=== PATIENT | female | born 2000 | race Caucasian/White ===

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

== ENCOUNTER 2019-06-20 21:05 | Emergency (ER) | payer BC ==
[2019-06-20] MEDS ORDERED: Acetaminophen 325 MG Tab PO ONE (21:14)
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
--- NOTE | 2019-06-20 21:50 | CR ---
Left fifth finger: 3 views centered to the left fifth finger were obtained. Comparison: No prior fifth finger study. Joint spaces are preserved. No fracture, dislocation or other bony abnormality is seen. Impression: 1. No abnormality is appreciated on 3 view left fifth finger exam. Diagnostic code #1 Study was dictated in MDT
--- NOTE | 2019-06-20 21:50 | CR ---
Lumbar spine: AP, lateral and coned-down lateral view centered to the lumbosacral junction were obtained. Comparison: No prior lumbar spine imaging is available. Vertebral body heights and disc spaces are preserved. Pedicles are intact. Visualized transverse and spinous processes are intact. No subluxation or fracture is seen. Slight increased stool is seen throughout the colon. Impression: 1. Slight increased stool within the colon. 2. Nothing acute is appreciated on 3 view lumbar spine exam. Diagnostic code #2 Study was dictated in MDT
[2019-06-20] MEDS ORDERED: Acetaminophen/HYDROcodone 325-5 MG Tab PO ONE (21:57)
[2019-06-20] MEDS ORDERED: Lidocaine 5% 700 MG Patch TOP ONE (21:57)
[2019-06-20 23:25] VITALS: BP 142/83; PULSE 122
== END 2019-06-20 22:43 | disposition home or self-care (01) ==
LOC: MW.ED 21:05
DX: S63.617A Unspecified sprain of left little finger, initial encounter (principal); S70.11XA Contusion of right thigh, initial encounter; S30.0XXA Contusion of lower back and pelvis, initial encounter; V86.59XA Driver of other special all-terrain or other off-road motor vehicle injured in nontraffic accident, initial encounter
CPT/HCPCS: 29130; 72100; 72100-26; 73140-26-F4; 73140-F4; 99282; 99284-25; A9270-GY

== ENCOUNTER 2020-02-05 21:58 | Emergency (ER) | payer BC ==
[2020-02-05] MEDS ORDERED: Sodium Chloride 0.9% 10 ML Syringe FLUSH PRN (22:03)
[2020-02-05] MEDS ORDERED: Sodium Chloride 0.9% 2.5 ML Syringe FLUSH PRN (22:03)
--- NOTE | 2020-02-05 22:19 | EDM.PDOCBH ---
ED HPI GENERAL MEDICAL PROBLEM - General Chief Complaint: Behavioral/Psych Stated Complaint: TOOK TO MUCH PILLS Time Seen by Provider: 02/05/20 21:59 Source of Information: Reports: Patient, Old Records History Limitations: Reports: No Limitations - History of Present Illness INITIAL COMMENTS - FREE TEXT/NARRATIVE: Is a very pleasant 19-year-old female presenting with concern for possible overdose. Patient is prescribed clonazepam 0.5 mg which she is supposed to take 3 times daily as needed for anxiety. Patient states she was involved in an argument with her boyfriend and her boyfriend's parents. She took 4 of her clonazepam tablets in front of her family "to get attention". She states that she was not trying to kill herself. She denies using any alcohol, illegal leonard gs, or any other medications tonight. At present she has no complaints and denies any pain. With the patient's consent, I did speak with her mother. Mother added no additional meaningful information and is not aware of any alcohol or illegal drug usage, states the patient did not make any direct suicidal statements to her. ROS: A 10-point review of systems was negative, except as noted in the HPI (or in the ROS section of this note). Past medical history: Reviewed, no additional pertinent history. Surgical history: Reviewed in system, no additional pertinent history. Social history: Reviewed in system, no additional pertinent history. Family history: Reviewed in system, no additional pertinent history. PHYSICAL EXAM Vital signs reviewed. Nursing notes reviewed. Constitutional: Awake, alert, non-distressed. Head: Normocephalic, atraumatic. Eyes: Pupils 3 mm bilaterally, EOMI, conjunctiva normal, no discharge, no scleral icterus. Ears, Nose, Throat: External ears and nose normal, moist oral mucosa. Cardiovascular: 2+ radial pulses bilaterally, capillary refill less than 2 seconds. Pulmonary: normal work of breathing, no accessory muscle use. Abdomen/GI: Soft, nontender, nondistended, no guarding or rigidity, no masses. Musculoskeletal: No deformities. Integumentary: Appropriate color for ethnicity, warm, dry, no pallor or jaundice, no rash. Neurologic: Alert, answering questions appropriately, normal speech, no facial droop, moving all extremities well. Psychiatric: Withdrawn, normal thought process. This patient was seen and evaluated during the 2019 SARS-CoV-2 novel coronavirus pandemic period. Community viral transmission is ongoing at time of this encounter and the emergency department is operating under pandemic response procedures. - Related Data Allergies Allergy/AdvReac Type Severity Reaction Status Date / Time No Known Allergies Allergy Verified 02/05/20 22:28 Home Meds: Home Meds ClonazePAM [KlonoPIN] 0.5 mg PO TID 02/05/20 [History] Past Medical History - Past Health History Medical/Surgical History: Denies Medical/Surgical History - Infectious Disease History Infectious Disease History: Reports: Chicken Pox Social & Family History - Family History Family Medical History: No Pertinent Family History - Caffeine Use Caffeine Use: Reports: None ED ROS GENERAL - Review of Systems Review Of Systems: See Below ED EXAM, BEHAVIORAL HEALTH - Physical Exam Exam: See Below #1 Interpretation EKG Interpretation Comments: 12-Lead ECG Interpretation Acquired: 10:27 PM Rhythm: Sinus rhythm Rate: 75 bpm [place]: Normal Intervals: Normal Ectopy: None RV Strain: No obvious RV strain pattern. ST Segments/T-Waves: No notable changes Acute Ischemic Changes: None apparent Interpretation: No STEMI COURSE, BEHAVIORAL HEALTH COMP - Course Vital Signs: Last Vital Signs Temp 36.8 C 02/06/20 01:14 Pulse 89 02/06/20 01:14 Resp 14 02/06/20 01:14 BP 118/70 02/06/20 01:14 Pulse Ox 98 02/06/20 01:14 Orders, Labs, Meds: Active Orders 24 hr Category Date Time Status Cardiac Monitoring [RC] . DIRECTED Care 02/05/20 22:03 Active EKG Documentation Completion [RC] STAT Care 02/05/20 22:02 Active Pulse Oximetry [RC] ASDIRECTED Care 02/05/20 22:02 Active DRUG SCREEN, URINE [URCHEM] Stat Lab 02/05/20 22:18 Ordered Sodium Chloride 0.9% [Saline Flush] Med 02/05/20 22:03 Active 10 ml FLUSH ASDIRECTED PRN Sodium Chloride 0.9% [Saline Flush] Med 02/05/20 22:03 Active 2.5 ml FLUSH ASDIRECTED PRN Saline Lock Insert [OM.PC] Stat Oth 02/05/20 22:03 Ordered Medication Orders Sodium Chloride (Saline Flush) 10 ml FLUSH ASDIRECTED PRN PRN Reason: Keep Vein Open Last Admin: 02/06/20 01:34 Dose: 10 ml Documented by: SCOUT Sodium Chloride (Saline Flush) 2.5 ml FLUSH ASDIRECTED PRN PRN Reason: Keep Vein Open Last Admin: 02/06/20 01:35 Dose: 2.5 ml Documented by: SCOUT Laboratory Tests 02/05/20 02/05/20 02/05/20 Range/Units 22:30 22:30 22:30 WBC 7.90 (4.0-11.0) K/uL RBC 4.63 (4.30-5.90) M/uL Hgb 14.3 (12.0-16.0) g/dL Hct 42.8 (36.0-46.0) % MCV 92.4 (80.0-98.0) fL MCH 30.9 (27.0-32.0) pg MCHC 33.4 (31.0-37.0) g/dL RDW Std Deviation 42.6 (28.0-62.0) fl RDW Coeff of Mihai 13 (11.0-15.0) % Plt Count 185 (150-400) K/uL MPV 11.40 (7.40-12.00) fL Neut % (Auto) 66.4 (48.0-80.0) % Lymph % (Auto) 26.2 (16.0-40.0) % [place] % (Auto) 6.1 (0.0-15.0) % Eos % (Auto) 0.9 (0.0-7.0) % Baso % (Auto) 0.4 (0.0-1.5) % Neut # (Auto) 5.3 (1.4-5.7) K/uL Lymph # (Auto) 2.1 (0.6-2.4) K/uL [place] # (Auto) 0.5 (0.0-0.8) K/uL Eos # (Auto) 0.1 (0.0-0.7) K/uL Baso # (Auto) 0.0 (0.0-0.1) K/uL Nucleated RBC % 0.0 /100WBC Nucleated RBCs # 0 K/uL INR 1.05 Sodium 140 (136-145) mmol/L Potassium 3.7 (3.5-5.1) mmol/L Chloride 103 (98-107) mmol/L Carbon Dioxide 24.2 (21.0-32.0) mmol/L BUN 11 (7.0-18.0) mg/dL Creatinine 0.8 (0.6-1.0) mg/dL Est Cr Clr Drug Dosing 84.65 mL/min Estimated GFR (MDRD) > 60.0 ml/min Glucose 85 (74-106) mg/dL Calcium 9.6 (8.5-10.1) mg/dL Total Bilirubin 0.4 (0.2-1.0) mg/dL AST 16 (15-37) IU/L ALT 24 (14-63) IU/L Alkaline Phosphatase 40 L (46-116) U/L Total Protein 7.6 (6.4-8.2) g/dL Albumin 4.1 (3.4-5.0) g/dL Globulin 3.5 (2.6-4.0) g/dL Albumin/Globulin Ratio 1.2 (0.9-1.6) HCG, Qual (NEG) Salicylates 1.5 (0-20) mg/dL Acetaminophen <2.0 ug/mL Ethyl Alcohol < 3.0 mg/dL 02/05/20 Range/Units 22:30 WBC (4.0-11.0) K/uL RBC (4.30-5.90) M/uL Hgb (12.0-16.0) g/dL Hct (36.0-46.0) % MCV (80.0-98.0) fL MCH (27.0-32.0) pg MCHC (31.0-37.0) g/dL RDW Std Deviation (28.0-62.0) fl RDW Coeff of Mihai (11.0-15.0) % Plt Count (150-400) K/uL MPV (7.40-12.00) fL Neut % (Auto) (48.0-80.0) % Lymph % (Auto) (16.0-40.0) % [place] % (Auto) (0.0-15.0) % Eos % (Auto) (0.0-7.0) % Baso % (Auto) (0.0-1.5) % Neut # (Auto) (1.4-5.7) K/uL Lymph # (Auto) (0.6-2.4) K/uL [place] # (Auto) (0.0-0.8) K/uL Eos # (Auto) (0.0-0.7) K/uL Baso # (Auto) (0.0-0.1) K/uL Nucleated RBC % /100WBC Nucleated RBCs # K/uL INR Sodium (136-145) mmol/L Potassium (3.5-5.1) mmol/L Chloride (98-107) mmol/L Carbon Dioxide (21.0-32.0) mmol/L BUN (7.0-18.0) mg/dL Creatinine (0.6-1.0) mg/dL Est Cr Clr Drug Dosing mL/min Estimated GFR (MDRD) ml/min Glucose (74-106) mg/dL Calcium (8.5-10.1) mg/dL Total Bilirubin (0.2-1.0) mg/dL AST (15-37) IU/L ALT (14-63) IU/L Alkaline Phosphatase (46-116) U/L Total Protein (6.4-8.2) g/dL Albumin (3.4-5.0) g/dL Globulin (2.6-4.0) g/dL Albumin/Globulin Ratio (0.9-1.6) HCG, Qual NEGATIVE (NEG) Salicylates (0-20) mg/dL Acetaminophen ug/mL Ethyl Alcohol mg/dL Medications Generic Name Dose Route Start Last Admin Trade Name Freq PRN Reason Stop Dose Admin Sodium Chloride 10 ml 02/05/20 22:03 02/06/20 01:34 Saline Flush FLUSH 10 ml ASDIRECTED PRN Administration Keep Vein Open Sodium Chloride 2.5 ml 02/05/20 22:03 02/06/20 01:35 Saline Flush FLUSH 2.5 ml ASDIRECTED PRN Administration Keep Vein Open Discharge vs Psych Eval/Treatment:: 19-year-old female presenting with clonazepam overdose. Patient hemodynamically stable, afebrile, well-appearing, looks nontoxic. Differential diagnosis includes but is not limited to: Drug overdose, alcohol intoxication, suicide attempt, psychosis, and many others. 11:02 PM: At this point patient is calm and cooperative. Twelve-lead EKG looks reassuring. IV access established and labs are pending. I did speak with the [place] poison control system who recommends 4 to 6 hours of monitoring as clonazepam will peak about 5 hours, we believe that she took this around 9:30 PM so peak time would be around 2:30 AM. 1:53 PM: Labs are reassuring. Patient showing no signs of benzodiazepine toxicity. Toxicology work-up is negative. Patient is resting comfortably. Twelve-lead EKG is reassuring. We will plan to have the patient transferred to [facility] for psychiatric evaluation. Received transfer acceptance from Dr. Dominguez. Transferred to the EMS crew in good condition. Departure - Departure Time of Disposition: 01:53 Disposition: DC/Tfer to Psych Hosp/Unit 65 Condition: Good Clinical Impression: Intentional benzodiazepine overdose Qualifiers: Encounter type: initial encounter Qualified Code(s): T42.4X2A - Poisoning by benzodiazepines, intentional self-harm, initial encounter - Discharge Information Referrals: Jeff Drew MD [Primary Care Provider] - Forms: ED Department Discharge Sepsis Event Note (ED) - Focused Exam Vital Signs: Vital Signs Temp Pulse Resp BP Pulse Ox 02/06/20 01:14 36.8 C 89 14 118/70 98 02/05/20 22:33 37.1 C 94 14 134/86 98 - My Orders Last 24 Hours: My Active Orders 02/05/20 22:02 EKG Documentation Completion [RC] STAT Pulse Oximetry [RC] ASDIRECTED 02/05/20 22:03 Cardiac Monitoring [RC] . DIRECTED Sodium Chloride 0.9% [Saline Flush] 10 ml FLUSH ASDIRECTED PRN Sodium Chloride 0.9% [Saline Flush] 2.5 ml FLUSH ASDIRECTED PRN Saline Lock Insert [OM.PC] Stat 02/05/20 22:18 DRUG SCREEN, URINE [URCHEM] Stat - Assessment/Plan Last 24 Hours: My Active Orders 02/05/20 22:02 EKG Documentation Completion [RC] STAT Pulse Oximetry [RC] ASDIRECTED 02/05/20 22:03 Cardiac Monitoring [RC] . DIRECTED Sodium Chloride 0.9% [Saline Flush] 10 ml FLUSH ASDIRECTED PRN Sodium Chloride 0.9% [Saline Flush] 2.5 ml FLUSH ASDIRECTED PRN Saline Lock Insert [OM.PC] Stat 02/05/20 22:18 DRUG SCREEN, URINE [URCHEM] Stat
[2020-02-05 22:51] LABS: ACETAMINOPHEN <2.0 ug/mL
[2020-02-05 22:56] LABS: BLOOD UREA NITROGEN,BUN 11 mg/dL (7.0-18.0); CARBON DIOXIDE,CO2 24.2 mmol/L (21.0-32.0); CHLORIDE,CL 103 mmol/L (98-107); GLUCOSE RANDOM 85 mg/dL (74-106); POTASSIUM,K 3.7 mmol/L (3.5-5.1); SODIUM,NA 140 mmol/L (136-145)
[2020-02-06 01:16] VITALS: BP 118/70; PULSE 89
== END 2020-02-06 02:51 ==
LOC: MW.ED 21:58
DX: T42.4X2A Poisoning by benzodiazepines, intentional self-harm, initial encounter (principal)
CPT/HCPCS: 36415; 80053; 80305-QW; 80307; 84703; 85025; 85610; 93005; 93010; 99284; 99285-25

== ENCOUNTER 2023-05-09 06:34 | Inpatient (IN) | payer BC ==
[2023-05-09] MEDS ORDERED: Butorphanol 2 MG/ML SDV IVPUSH PRN (07:14)
[2023-05-09] MEDS ORDERED: Lidocaine 1% 50 ML MDV INJECT PRN (07:14)
[2023-05-09] MEDS ORDERED: Tranexamic Acid IN NACL,ISO-OS 1,000 MG in Premix Bag 1 BAG IV PRN (07:14)
[2023-05-09] MEDS ORDERED: Sodium Chloride 0.9% 2.5 ML Syringe FLUSH PRN (07:14)
[2023-05-09] MEDS ORDERED: Water For Irrigation,Sterile 1,000 ML Container IRR PRN (07:14)
[2023-05-09] MEDS ORDERED: Sodium Chloride 0.9% 10 ML Syringe FLUSH PRN (07:14)
[2023-05-09] MEDS ORDERED: Carboprost Tromethamine 250 MCG/1 mL Vial IM PRN (07:14)
[2023-05-09] MEDS ORDERED: Sodium Chloride 0.9% 20 ML SDV IV PRN (07:14)
[2023-05-09] MEDS ORDERED: Ondansetron 4 MG/2 ML SDV IVPUSH PRN (07:14)
[2023-05-09] MEDS ORDERED: Methylergonovine 0.2 MG/1 ML Amp IM PRN (07:14)
[2023-05-09] MEDS ORDERED: Misoprostol 200 MCG Tab PO PRN (07:14)
[2023-05-09] MEDS ORDERED: Oxytocin/0.9 % Sodium Chloride 30 UNIT/500 ML BAG IV SCH ×2 (07:15→20:45)
[2023-05-09] MEDS: Lactated Ringers 1,000 ML IV SCH (07:49)
[2023-05-09 08:00] LABS: HEMOGLOBIN 12.3 g/dL (12.0-16.0); MEAN CORPUSCULAR HEMOGLOBIN 29.9 pg (28.0-32.0); MEAN CORPUSCULAR HGB CONC 33.2 g/dL (32.0-36.0); MEAN CORPUSCULAR VOLUME 89.8 fL (83.0-99.0); MEAN PLATELET VOLUME 11.8 fL (9.4-12.3); PLATELET COUNT,PLT 171 K/uL (150-400); RED BLOOD CELL COUNT 4.12 M/uL (4.10-5.30); WHITE BLOOD CELL COUNT,WBC 10.75 K/uL (3.9-11.3)
[2023-05-09] MEDS: Nalbuphine 10 MG/0.5 ML Syringe IVPUSH PRN (09:53)
[2023-05-09] MEDS ORDERED: ePHEDrine 50 MG/ML SDV IVPUSH PRN ×2 (18:06)
[2023-05-09] MEDS ORDERED: Bupivacaine 0.5% 10 ML SDV ONE ×2 (18:14→22:47)
[2023-05-09] MEDS ORDERED: Phenylephrine HCl 0.5 MG/5 ML AMP ONE (18:14)
[2023-05-09] MEDS ORDERED: Ropivacaine HCl/PF 400 MG in Premix Bag 1 BAG EPIDUR SCH (18:15)
[2023-05-09] MEDS: Ropivacaine HCl/PF 200 ML ONE (18:28)
[2023-05-09] MEDS: Phenylephrine HCl 0.5 MG/5 ML AMP IVPUSH PRN (21:07)
[2023-05-09] MEDS ORDERED: Ropivacaine 0.5% 5 MG/ML 30 ML SDV ONE (22:46)
[2023-05-09] MEDS ORDERED: Bupivacaine 0.25% 30 ML SDV ONE (22:46)
[2023-05-09] MEDS ORDERED: Ondansetron 4 MG/2 ML SDV ONE (22:46)
[2023-05-09] MEDS ORDERED: ceFAZolin 1 GM Vial ONE (22:46)
[2023-05-09] MEDS ORDERED: fentaNYL 100 MCG/2 ML SDV ONE (22:46)
[2023-05-09] MEDS ORDERED: EPINEPHrine 1 MG/1 ML Amp ONE (22:46)
[2023-05-09] MEDS ORDERED: Oxytocin 10 Units/1 ML SDV ONE (22:46)
[2023-05-09] MEDS ORDERED: Ketorolac 30 MG/ML SDV ONE (22:46)
[2023-05-09] MEDS ORDERED: Lidocaine 2% 5 ML SDV ONE ×2 (22:47→23:22)
[2023-05-09] MEDS ORDERED: Morphine PF 10 MG/10 ML SDV ONE (22:47)
[2023-05-09] MEDS ORDERED: Azithromycin 500 MG Vial ONE (23:19)
[2023-05-10] MEDS ORDERED: diphenhydrAMINE 50 MG/ML SDV IVPUSH PRN ×2 (00:04→00:19)
[2023-05-10] MEDS ORDERED: Misoprostol 200 MCG Tab RECTAL PRN (00:04)
[2023-05-10] MEDS ORDERED: Bisacodyl 10 MG Supp RECTAL PRN (00:04)
[2023-05-10] MEDS ORDERED: Oxytocin 10 Units/1 ML SDV IM PRN (00:04)
[2023-05-10] MEDS ORDERED: Ondansetron 4 MG/2 ML SDV IVPUSH PRN ×3 (00:04→00:19)
[2023-05-10] MEDS ORDERED: Methylergonovine 0.2 MG/1 ML Amp IM PRN (00:04)
[2023-05-10] MEDS ORDERED: droPERidol 5 MG/2 ML SDV IVPUSH PRN (00:19)
[2023-05-10] MEDS ORDERED: Albuterol 0.083% 2.5 MG/3 ML Neb Soln NEB PRN (00:19)
[2023-05-10] MEDS ORDERED: ePHEDrine 50 MG/ML SDV IVPUSH PRN (00:19)
[2023-05-10] MEDS ORDERED: HYDROmorphone 1 MG/ML Syringe IVPUSH PRN (00:19)
[2023-05-10] MEDS ORDERED: Naloxone 0.4 MG/ML SDV IVPUSH PRN (00:19)
[2023-05-10] MEDS ORDERED: fentaNYL 100 MCG/2 ML SDV IVPUSH PRN (00:19)
[2023-05-10] MEDS ORDERED: Morphine 2 MG/ML SYRINGE IVPUSH PRN (00:19)
[2023-05-10] MEDS ORDERED: Metoclopramide 10 MG/2 ML SDV IVPUSH PRN (00:19)
[2023-05-10] MEDS ORDERED: Acetaminophen/oxyCODONE 325-5 MG Tab PO PRN (00:19)
[2023-05-10] MEDS ORDERED: fentaNYL 50 MCG/ML SDV IVPUSH PRN (00:19)
[2023-05-10 00:34] LABS: PH,UMBILICAL ARTERIAL 7.158 (7.18-7.38); PH,UMBILICAL VENOUS 7.205 (7.25-7.45)
[2023-05-10] MEDS: Acetaminophen 1,000 MG in Premix Bag 1 BAG IV SCH ×2 (02:02→08:16)
[2023-05-10] MEDS: Ketorolac 30 MG/ML SDV IVPUSH SCH (04:36)
[2023-05-10] MEDS: Lactated Ringers 1,000 ML IV SCH (04:56)
[2023-05-10] MEDS: Simethicone 80 MG Tab.Chew PO SCH (06:08)
[2023-05-10] MEDS: Docusate Sodium 100 MG Cap PO SCH (08:16)
[2023-05-10 15:20] LABS: HEMATOCRIT 26.8 % (37.0-47.0); HEMOGLOBIN 8.8 g/dL (12.0-16.0)
[2023-05-11] MEDS: Acetaminophen/oxyCODONE 325-5 MG Tab PO PRN ×2 (04:16→09:37)
[2023-05-11] MEDS: Ibuprofen 800 MG Tab PO PRN (16:06)
[2023-05-11] MEDS: Lanolin 100% Cream 7 GM Tube TOP PRN (22:26)
[2023-05-12 12:03] VITALS: BP 116/76; PULSE 96
== END 2023-05-12 13:35 | disposition home or self-care (01) | DRG 540 ==
LOC: MW.OBCHECK 06:34 → MW.OB 06:35 → MW.OBCHECK 07:13 → MW.OB 07:14 → OBSVTOIN 23:24 → MW.OB 05-10 02:30
PROVIDERS: ADMIT Obstetrics & Gynecology; ATTEND Obstetrics & Gynecology
PROC: 3E0R3BZ Introduction of Anesthetic Agent into Spinal Canal, Percutaneous Approach (ICD-10-PCS; 2023-05-09)
PROC: 00HU33Z Insertion of Infusion Device into Spinal Canal, Percutaneous Approach (ICD-10-PCS; 2023-05-09)
PROC: 10907ZC Drainage of Amniotic Fluid, Therapeutic from Products of Conception, Via Natural or Artificial Opening (ICD-10-PCS; 2023-05-09)
PROC: 10D00Z1 Extraction of Products of Conception, Low, Open Approach (ICD-10-PCS; principal; 2023-05-09 23:21)
DX: O48.0 Post-term pregnancy (principal); Z37.0 Single live birth; O76 Abnormality in fetal heart rate and rhythm complicating labor and delivery; O69.81X0 Labor and delivery complicated by cord around neck, without compression, not applicable or unspecified; Z3A.40 40 weeks gestation of pregnancy
CPT/HCPCS: 36415; 51702; 59025; 82803; 85014; 85018; 85027; 86592; 86850; 86900; 86901; A9270-GY; J0131; J0171; J0456; J0665; J0690; J1100; J1885; J2274; J2300; J2371; J2405; J2590; J2795; J3010; J3490; J7120